=== PATIENT | female | born 1970 | race Caucasian/White ===

== ENCOUNTER 2016-08-09 16:04 | Emergency (ER) | payer BC ==
[~2016-08-09] VITALS: Ht 162.6 cm; Wt 68.0 kg
[~2016-08-09 16:04] MED LIST: CARV6.25 PO; PERC5TAB12 PO; SYNT75TA PO; ULTR50TA PO
[2016-08-09 16:06] VITALS: BP 180/86; PULSE 70; RESP 16; TEMP 97.6; O2SAT 98
--- NOTE | 2016-08-09 16:14 | PD ---
HPI Chief Complaint: Complaint Time Seen by Provider: 16:14 Travel History International Travel<30 days: No Contact w/Intl Traveler<30days: No Traveled to known affect area: No History of Present Illness HPI 45-year-old female with history of COPD, CAD, and CABG, presents to the emergency department for evaluation of urinary urgency, frequency that she has been experiencing over the last few months. She states that the last week however she has developed a low back pain and burning with urination. Denies any fever or chills. No chest tightness. No difficulty breathing. She has no other symptoms to report this time. PFSH Past Medical History Hx Anticoagulant Therapy: Yes Autoimmune Disease: Yes (alopecia) Cancer: No Cardiovascular Problems: Yes Congestive Heart Failure: Yes COPD: Yes Endocrine: No Genitourinary: No Hypertension: Yes Immune Disorder: Yes Musculoskeletal: No Neurologic: No Psychiatric: No Reproductive: No Respiratory: Yes Past Surgical History Abdominal Surgery: Yes (gastric bypass surgery) Cardiac Surgery: Yes (open-heart surgery with aortic repair and valve replacement) Gynecologic Surgery: Yes (HYSTERECTOMY, BLADDER STENT AND SLING) Hysterectomy: Yes Social History Alcohol Use: No Tobacco Use: Yes Substance Use: No Allergies-Medications (Allergen,Severity, Reaction): Coded Allergies: No Known Allergies (Unverified , 01/04/16) Reported Meds & Prescriptions Reported Meds & Active Scripts Active Keflex (Cephalexin) 500 Mg Cap 500 Mg PO Q12H 7 Days Reported Coreg (Carvedilol) 6.25 Mg Tab 6.25 Mg PO BID Synthroid (Levothyroxine Sodium) 75 Mcg Tab 75 Mcg PO DAILY Warfarin 10 Mg Tab 10 Mg PO DAILY@1600 Review of Systems Except as stated in HPI: all other systems reviewed are Neg Physical Exam Narrative GENERAL: Well-nourished, well-developed female patient, ambulatory no acute distress SKIN: Warm and dry. HEAD: Normocephalic. EYES: No scleral icterus. No injection or drainage. NECK: Supple, trachea midline. No JVD or lymphadenopathy. CARDIOVASCULAR: Regular rate and rhythm without murmurs, gallops, or rubs. RESPIRATORY: Breath sounds coarse, equal bilaterally. No accessory muscle use. Abdomen: Abdomen soft, non-tender, nondistended. Positive bowel sounds. No hepato-splenomegaly, or palpable masses. No guarding. MUSCULOSKELETAL: No cyanosis, or edema. BACK: Nontender without obvious deformity. Mild right sided CVA tenderness. Data Data Last Documented VS Vital Signs Date Time Temp Pulse Resp B/P Pulse Ox O2 Delivery O2 Flow Rate FiO2 08/09/16 18:19 97.8 76 17 130/71 98 08/09/16 16:06 Room Air Orders Complete Blood Count With Diff (08/09/16 16:22) Basic Metabolic Panel (Bmp) (08/09/16 16:22) Urinalysis - C+S If Indicated (08/09/16 16:22) Ct Abd/Pel W/O Iv Contrast (08/09/16 ) Iv Access Insert/Monitor (08/09/16 16:22) Sodium Chlorid 0.9% 500 Ml Inj (Ns 500 M (08/09/16 16:30) Urine Culture (08/09/16 16:00) Ceftriaxone Inj (Rocephin Inj) (08/09/16 17:45) Labs Laboratory Tests Test 08/09/16 08/09/16 16:00 16:41 Urine Color YELLOW Urine Turbidity HAZY Urine pH 8.0 Urine Specific [place] 1.015 Urine Protein 100 mg/dL Urine Glucose (UA) NEG mg/dL Urine Ketones NEG mg/dL Urine Occult Blood SMALL Urine Nitrite NEG Urine Bilirubin NEG Urine Urobilinogen LESS THAN 2.0 MG/DL Urine Leukocyte Esterase LARGE Urine RBC 55 /hpf Urine WBC /hpf Urine WBC Clumps OCC Urine Squamous Epithelial 1 /hpf Cells Urine Bacteria RARE /hpf Urine Mucus FEW /lpf Microscopic Urinalysis Comment CULTURE INDICATED White Blood Count 9.1 TH/MM3 Red Blood Count 4.70 MIL/MM3 Hemoglobin 13.9 GM/DL Hematocrit 40.2 % Mean Corpuscular Volume 85.5 FL Mean Corpuscular Hemoglobin 29.6 PG Mean Corpuscular Hemoglobin 34.6 % Concent Red Cell Distribution Width 15.9 % Platelet Count 264 TH/MM3 Mean Platelet Volume 7.6 FL Neutrophils (%) (Auto) 68.8 % Lymphocytes (%) (Auto) 19.6 % Monocytes (%) (Auto) 8.3 % Eosinophils (%) (Auto) 2.2 % Basophils (%) (Auto) 1.1 % Neutrophils # (Auto) 6.3 TH/MM3 Lymphocytes # (Auto) 1.8 TH/MM3 Monocytes # (Auto) 0.8 TH/MM3 Eosinophils # (Auto) 0.2 TH/MM3 Basophils # (Auto) 0.1 TH/MM3 CBC Comment DIFF FINAL Differential Comment Sodium Level 139 MEQ/L Potassium Level 4.3 MEQ/L Chloride Level 103 MEQ/L Carbon Dioxide Level 31.0 MEQ/L Anion Gap 5 MEQ/L Blood Urea Nitrogen 12 MG/DL Creatinine 0.67 MG/DL Estimat Glomerular Filtration 95 ML/MIN Rate Random Glucose 79 MG/DL Calcium Level 8.4 MG/DL [facility] Medical Decision Making Medical Screen Exam Complete: Yes Emergency Medical Condition: Yes Medical Record Reviewed: Yes Differential Diagnosis Cystitis versus vaginitis versus urethritis versus pyelonephritis versus muscle strain versus low back pain Narrative Course 45 year-old female presents to the emergency department for evaluation. Patient appears without distress. She has mild right sided CVA tenderness. Laboratory Tests Test 08/09/16 08/09/16 16:00 16:41 Urine Color YELLOW Urine Turbidity HAZY Urine pH 8.0 Urine Specific Jemison 1.015 Urine Protein 100 mg/dL Urine Glucose (UA) NEG mg/dL Urine Ketones NEG mg/dL Urine Occult Blood SMALL Urine Nitrite NEG Urine Bilirubin NEG Urine Urobilinogen LESS THAN 2.0 MG/DL Urine Leukocyte Esterase LARGE Urine RBC 55 /hpf Urine WBC /hpf Urine WBC Clumps OCC Urine Squamous Epithelial 1 /hpf Cells Urine Bacteria RARE /hpf Urine Mucus FEW /lpf Microscopic Urinalysis Comment CULTURE INDICATED White Blood Count 9.1 TH/MM3 Red Blood Count 4.70 MIL/MM3 Hemoglobin 13.9 GM/DL Hematocrit 40.2 % Mean Corpuscular Volume 85.5 FL Mean Corpuscular Hemoglobin 29.6 PG Mean Corpuscular Hemoglobin 34.6 % Concent Red Cell Distribution Width 15.9 % Platelet Count 264 TH/MM3 Mean Platelet Volume 7.6 FL Neutrophils (%) (Auto) 68.8 % Lymphocytes (%) (Auto) 19.6 % Monocytes (%) (Auto) 8.3 % Eosinophils (%) (Auto) 2.2 % Basophils (%) (Auto) 1.1 % Neutrophils # (Auto) 6.3 TH/MM3 Lymphocytes # (Auto) 1.8 TH/MM3 Monocytes # (Auto) 0.8 TH/MM3 Eosinophils # (Auto) 0.2 TH/MM3 Basophils # (Auto) 0.1 TH/MM3 CBC Comment DIFF FINAL Differential Comment Sodium Level 139 MEQ/L Potassium Level 4.3 MEQ/L Chloride Level 103 MEQ/L Carbon Dioxide Level 31.0 MEQ/L Anion Gap 5 MEQ/L Blood Urea Nitrogen 12 MG/DL Creatinine 0.67 MG/DL Estimat Glomerular Filtration 95 ML/MIN Rate Random Glucose 79 MG/DL Calcium Level 8.4 MG/DL Last Impressions Abdomen/Pelvis CT 08/09/16 0000 Signed Impressions: Service Date/Time: Tuesday, August 09, 2016 17:30 - CONCLUSION: No evidence of renal stones or hydronephrosis. No dilated loops of small or large bowel. Coleman Trinidad MD I discussed the patient and the findings of the CT scan with my attending physician. She has also assessed the patient. Patient will be discharged home to follow-up with primary care provider. She'll be provided a prescription of Keflex. She was given Rocephin here in the emergency department for her UTI. She agrees to return immediately with any acute worsening symptoms Diagnosis Primary Impression: UTI (urinary tract infection) Qualified Code: N30.01 - Acute cystitis with hematuria Referrals: Primary Care Physician Urologist Patient Instructions: General Instructions, Urinary Tract Infection in Women ( ED) Additional Instructions: Maintain adequate oral hydration Follow-up with your primary care provider Seek urology evaluation if symptoms persist Return immediately with any acute worsening of symptoms Med/Other Pt SpecificInfo: Prescription(s) given Scripts Cephalexin (Keflex)500 Mg [id number] Mg PO Q12H 7 Days Ref 0 Prov:Ericka Palmer 08/09/16 Disposition: 01 DISCHARGE HOME Condition: Stable Ericka Palmer Aug 09, 2016 16:14
[2016-08-09] MEDS ORDERED: WARF-22 PO (16:21)
[2016-08-09] MEDS ORDERED: LEVO.075 PO (16:21)
[2016-08-09] MEDS ORDERED: CARV6.25 PO (16:21)
[2016-08-09] MEDS ORDERED: SODIUM CHLORID 0.9% 500 ML INJ 500 ML IV ONE (16:30)
[2016-08-09 16:51] LABS: AUTOMATED NEUTROPHIL # 6.3 TH/MM3 (1.8-7.7); BASOPHIL # 0.1 TH/MM3 (0-0.2); BASOPHIL % 1.1 % (0.0-2.0); EOSINOPHIL # 0.2 TH/MM3 (0-0.4); EOSINOPHIL % 2.2 % (0.0-4.0); HEMATOCRIT 40.2 % (35.0-46.0); HEMO FLAGS DIFF FINAL; LYMPH % 19.6 % (9.0-44.0); LYMPHOCYTE # 1.8 TH/MM3 (1.0-4.8); MEAN CELL VOLUME 85.5 FL (80.0-100.0); MEAN CORPUSCULAR HEMOGLOBIN 29.6 PG (27.0-34.0); MEAN CORPUSCULAR HGB CONC 34.6 % (32.0-36.0); MONO % 8.3 % (0.0-8.0); NEUT % 68.8 % (16.0-70.0); PLATELET COUNT 264 TH/MM3 (150-450); RED CELL DISTRIBUTION WIDTH 15.9 % (11.6-17.2); WHITE BLOOD COUNT 9.1 TH/MM3 (4.0-11.0)
[2016-08-09 17:18] LABS: BACTERIA, URINE RARE /hpf; BLOOD, URINE SMALL (NEG); COMMENT (UR) CULTURE INDICATED; CULTURE IF INDICATED CULTURE INDICATED; GLUCOSE,URINE NEG (NEG); KETONE, URINE NEG (NEG); MUCUS URINE FEW /lpf (OCC); NITRITE,URINE NEG (NEG); SQUAMOUS EPITHELIAL CELL URINE 1 /hpf (0-5); URINE COLOR YELLOW (YELLW/STRAW)
[2016-08-09 17:20] LABS: POTASSIUM 4.3 MEQ/L (3.5-5.1)
[2016-08-09] MEDS ORDERED: cefTRIAXone INJ 1,000 MG in SODIUM CHLORIDE 0.9% INJ 100 ML IV ONE (17:45)
--- NOTE | 2016-08-09 17:58 | RADRPT ---
EXAM DATE/TIME: 08/09/2016 17:30 [place] COMPARISON: No previous studies available for comparison. INDICATIONS : Bilateral flank pain with constant urge to urinate ORAL CONTRAST: No oral contrast ingested. RADIATION DOSE: 8.39 CTDIvol (mGy) MEDICAL HISTORY : Congestive heart failure. Cardiovascular disease Chronic obstructive pulmonary disease. SURGICAL HISTORY : Hysterectomy. Gastric bypass. [employer] Interstim bladder implant device. Bladder stent with sling. ENCOUNTER: Initial ACUITY: 3 months PAIN SCALE: 2/10 LOCATION: Bilateral flank TECHNIQUE: Volumetric scanning of the abdomen and pelvis was performed. Using automated exposure control and ad justment of the mA and/or kV according to patient size, radiation dose was kept as low as reasonably achievable to obtain optimal diagnostic quality images. FINDINGS: LOWER LUNGS: The visualized lower lungs are clear. LIVER: Homogeneous density without lesion. There is no dilation of the biliary tree. No calcified gallston es. SPLEEN: Normal size without lesion. PANCREAS: Within normal limits. KIDNEYS: Normal in size and shape. There is no mass, stone, or hydronephrosis. No calcification seen along t he expected course of either ureter. ADRENAL GLANDS: Within normal limits. VASCULAR: There is no aortic aneurysm. BOWEL/MESENTERY: Surgical suture about the greater curvature of the stomach. No dilated loops of small or large bowel . ABDOMINAL WALL: Within normal limits. RETROPERITONEUM: There is no lymphadenopathy. BLADDER: Smooth margins. No calcifications within the lumen. REPRODUCTIVE: Within normal limits. INGUINAL: There is no lymphadenopathy or hernia. MUSCULOSKELETAL: Stimulation device in the left gluteal region with electrode extending to the left posterior pelvis a long the anterior margin of the piriformis muscle. CONCLUSION: No evidence of renal stones or hydronephrosis. No dilated loops of small or large bowel. Coleman Trinidad MD on August 09, 2016 at 17:54 Board Certified Radiologist. This report was verified electronically.
[2016-08-09] MEDS ORDERED: CEPH-460 PO (18:15)
[2016-08-09 18:19] VITALS: BP 130/71; TEMP 97.8
--- NOTE | 2016-08-09 18:31 | PD ---
Physical Exam Date Seen by Provider: Aug 09, 2016 Time Seen by Provider: 17:30 Narrative I, Dr. Monreal, have reviewed the advance practice practitioner's documentation and am in agreement, met with the patient face to face, made the diagnosis, and the medical decision making was done by me. *My assessment and Findings: Patient seen and evaluated with nurse practitioner , please see nurse's pressure for further details. She had with urinary symptoms, lower back discomfort. Abdomen is benign and we do not suspect an acute intra-abdominal process. Laboratory Tests Test 08/09/16 08/09/16 16:00 16:41 Urine Turbidity HAZY (CLEAR) Urine Protein 100 mg/dL (NEG-TRACE) Urine Occult Blood SMALL (NEG) Urine Leukocyte Esterase LARGE (NEG) Urine RBC 55 /hpf (0-3) Urine WBC Clumps OCC (NONE) Urine Bacteria RARE /hpf (NONE) Urine Mucus FEW /lpf (OCC) Monocytes (%) (Auto) 8.3 % (0.0-8.0) Calcium Level 8.4 MG/DL (8.5-10.1) Last 24 hours Impressions Abdomen/Pelvis CT 08/09/16 0000 Signed Impressions: Service Date/Time: Tuesday, August 09, 2016 17:30 - CONCLUSION: No evidence of renal stones or hydronephrosis. No dilated loops of small or large bowel. Coleman Trinidad MD CT of the abdomen pelvis did not reveal any signs of acute intra-abdominal processes. Lab work does show that she has significant UTI. The rest of the lab work was unremarkable for any significant sepsis. IV antibiotics were given in the ER and my plan would be to release her with further antibiotic treatment. She will need to follow-up with primary care physician and urology is she continued to have problems with UTI frequently. Return for any worsening in symptoms as needed. The plan has discussed with her and she is agreeable. Data Data Last Documented VS Vital Signs Date Time Temp Pulse Resp B/P Pulse Ox O2 Delivery O2 Flow Rate FiO2 08/09/16 18:19 97.8 76 17 130/71 98 08/09/16 16:06 Room Air Orders Complete Blood Count With Diff (08/09/16 16:22) Basic Metabolic Panel (Bmp) (08/09/16 16:22) Urinalysis - C+S If Indicated (08/09/16 16:22) Ct Abd/Pel W/O Iv Contrast (08/09/16 ) Iv Access Insert/Monitor (08/09/16 16:22) Sodium Chlorid 0.9% 500 Ml Inj (Ns 500 M (08/09/16 16:30) Urine Culture (08/09/16 16:00) Ceftriaxone Inj (Rocephin Inj) (08/09/16 17:45) Labs Laboratory Tests Test 08/09/16 08/09/16 16:00 16:41 Urine Color YELLOW Urine Turbidity HAZY Urine pH 8.0 Urine Specific [place] 1.015 Urine Protein 100 mg/dL Urine Glucose (UA) NEG mg/dL Urine Ketones NEG mg/dL Urine Occult Blood SMALL Urine Nitrite NEG Urine Bilirubin NEG Urine Urobilinogen LESS THAN 2.0 MG/DL Urine Leukocyte Esterase LARGE Urine RBC 55 /hpf Urine WBC /hpf Urine WBC Clumps OCC Urine Squamous Epithelial 1 /hpf Cells Urine Bacteria RARE /hpf Urine Mucus FEW /lpf Microscopic Urinalysis Comment CULTURE INDICATED White Blood Count 9.1 TH/MM3 Red Blood Count 4.70 MIL/MM3 Hemoglobin 13.9 GM/DL Hematocrit 40.2 % Mean Corpuscular Volume 85.5 FL Mean Corpuscular Hemoglobin 29.6 PG Mean Corpuscular Hemoglobin 34.6 % Concent Red Cell Distribution Width 15.9 % Platelet Count 264 TH/MM3 Mean Platelet Volume 7.6 FL Neutrophils (%) (Auto) 68.8 % Lymphocytes (%) (Auto) 19.6 % Monocytes (%) (Auto) 8.3 % Eosinophils (%) (Auto) 2.2 % Basophils (%) (Auto) 1.1 % Neutrophils # (Auto) 6.3 TH/MM3 Lymphocytes # (Auto) 1.8 TH/MM3 Monocytes # (Auto) 0.8 TH/MM3 Eosinophils # (Auto) 0.2 TH/MM3 Basophils # (Auto) 0.1 TH/MM3 CBC Comment DIFF FINAL Differential Comment Sodium Level 139 MEQ/L Potassium Level 4.3 MEQ/L Chloride Level 103 MEQ/L Carbon Dioxide Level 31.0 MEQ/L Anion Gap 5 MEQ/L Blood Urea Nitrogen 12 MG/DL Creatinine 0.67 MG/DL Estimat Glomerular Filtration 95 ML/MIN Rate Random Glucose 79 MG/DL Calcium Level 8.4 MG/DL [facility] Medical Record Reviewed: Yes Supervised Visit with KOLBY: Yes Diagnosis Primary Impression: UTI (urinary tract infection) Qualified Code: N30.01 - Acute cystitis with hematuria Referrals: Primary Care Physician Urologist Patient Instructions: General Instructions, Urinary Tract Infection in Women ( ED) Departure Forms: Tests/Procedures Additional Instruction: Maintain adequate oral hydration Follow-up with your primary care provider Seek urology evaluation if symptoms persist Return immediately with any acute worsening of symptoms Scripts Cephalexin (Keflex)500 Mg [id number] Mg PO Q12H 7 Days Ref 0 Prov:Ericka Palmer 08/09/16 Disposition: 01 DISCHARGE HOME Condition: Stable Jose Alberto Monreal MD Aug 09, 2016 18:31
== END 2016-08-09 18:20 | disposition home or self-care (01) ==
LOC: NEPA 16:04
DX: N30.01 Acute cystitis with hematuria (principal); B96.89 Other specified bacterial agents as the cause of diseases classified elsewhere
CPT/HCPCS: 74176; 80048; 81001; 85025; 87086; 96361; 96365; 99285; J0696; J7040

== ENCOUNTER 2016-09-19 09:21 | Emergency (ER) | payer BC ==
[~2016-09-19] VITALS: Ht 162.6 cm; Wt 68.0 kg
[~2016-09-19 09:21] MED LIST changes: +CEPH-460 PO; +LEVO.075 PO; -PERC5TAB12 PO; -SYNT75TA PO; -ULTR50TA PO; +WARF-22 PO
[2016-09-19 09:40] VITALS: BP 187/98; PULSE 78; RESP 15; TEMP 98; O2SAT 98
[2016-09-19] MEDS ORDERED: LISI-519 PO (10:14)
--- NOTE | 2016-09-19 10:23 | PD ---
HPI Chief Complaint: Skin Problem Time Seen by Provider: 09:55 Travel History International Travel<30 days: No Contact w/Intl Traveler<30days: No Traveled to known affect area: No History of Present Illness HPI 45-year-old female presents with bruising to her right forearm without trauma. She had her INR checked today at and it was actually a little low so they advised her to come to the emergency room to get more testing. This was through her nurse at Dr. zepeda's office. She denies other concurrent complaints. Quality is started with a bump and now is a bruise that is sore over her arm. PFSH Past Medical History Hx Anticoagulant Therapy: Yes (COUMADIN) Autoimmune Disease: Yes (ALOPECIA) Cardiovascular Problems: Yes ([facility] VALVE REPL 12/2015) Congestive Heart Failure: Yes COPD: Yes Diminished Hearing: No Gastrointestinal Disorders: Yes Genitourinary: No Hypertension: Yes Immune Disorder: Yes Implanted Vascular Access Dvce: Yes (MECHANICAL VALVE) Musculoskeletal: No Neurologic: No Psychiatric: No Reproductive: No Respiratory: Yes Thyroid Disease: Yes ?: Not Para: 3 : 1 Past Surgical History Abdominal Surgery: Yes (gastric bypass surgery) Cardiac Surgery: Yes (open-heart surgery with aortic repair and valve replacement) Section: Yes Gynecologic Surgery: Yes (HYSTERECTOMY, BLADDER STENT AND SLING) Hysterectomy: Yes Valve Replacement: Yes (AORTIC VALVE REPLACEMENT MECHANICAL) Other Surgery: Yes Social History Alcohol Use: Yes (OCASSIONALLY) Tobacco Use: Yes (1/2 PACK PER DAY) Substance Use: Yes (MARIHUANA) Allergies-Medications (Allergen,Severity, Reaction): Coded Allergies: No Known Allergies (Unverified , 09/19/16) Reported Meds & Prescriptions Reported Meds & Active Scripts Active Reported Lisinopril 5 Mg Tab 5 Mg PO DAILY Coreg (Carvedilol) 6.25 Mg Tab 6.25 Mg PO BID Synthroid (Levothyroxine Sodium) 75 Mcg Tab 75 Mcg PO DAILY Warfarin 10 Mg Tab 10 Mg PO DAILY@1600 Review of Systems Except as stated in HPI: all other systems reviewed are Neg Physical Exam Narrative GENERAL: Well-nourished, well-developed patient. SKIN: Warm and dry. Appears to be older ecchymosis over her right arm with small area of hematoma just below right elbow without any joint pain or active bleeding HEAD: Normocephalic and atraumatic. EYES: No injection or drainage. ENT: No nasal drainage noted. NECK: Supple, trachea midline. CARDIOVASCULAR: Regular rate and rhythm RESPIRATORY: No increased effort. No accessory muscle use. GASTROINTESTINAL: Abdomen soft, non-tender, nondistended. EXTREMITIES: No edema.Pain with palpation of right forearm over bruise, no pain with other joints , neurovascularly intact, no lacerations over, compartments soft. NEUROLOGICAL: Awake and alert. Motor and sensory grossly within normal limits. Normal speech. Data Data Last Documented VS Vital Signs Date Time Temp Pulse Resp B/P Pulse Ox O2 Delivery O2 Flow Rate FiO2 09/19/16 09:40 98.0 78 15 187/98 98 Orders Complete Blood Count With Diff (09/19/16 09:56) Basic Metabolic Panel (Bmp) (09/19/16 09:56) Act Partial Throm Time (Ptt) (09/19/16 09:56) Prothrombin Time / Inr (Pt) (09/19/16 09:56) Iv Access Insert/Monitor (09/19/16 09:56) Labs Laboratory Tests Test 09/19/16 10:10 White Blood Count 9.3 TH/MM3 Red Blood Count 4.90 MIL/MM3 Hemoglobin 14.4 GM/DL Hematocrit 42.7 % Mean Corpuscular Volume 87.2 FL Mean Corpuscular Hemoglobin 29.4 PG Mean Corpuscular Hemoglobin 33.7 % Concent Red Cell Distribution Width 14.6 % Platelet Count 252 TH/MM3 Mean Platelet Volume 8.0 FL Neutrophils (%) (Auto) 69.5 % Lymphocytes (%) (Auto) 21.3 % Monocytes (%) (Auto) 6.8 % Eosinophils (%) (Auto) 2.1 % Basophils (%) (Auto) 0.3 % Neutrophils # (Auto) 6.5 TH/MM3 Lymphocytes # (Auto) 2.0 TH/MM3 Monocytes # (Auto) 0.6 TH/MM3 Eosinophils # (Auto) 0.2 TH/MM3 Basophils # (Auto) 0.0 TH/MM3 CBC Comment DIFF FINAL Differential Comment Prothrombin Time 25.3 SEC Prothromb Time International 2.2 RATIO Ratio Activated Partial 35.3 SEC Thromboplast Time Sodium Level 143 MEQ/L Potassium Level 3.7 MEQ/L Chloride Level 107 MEQ/L Carbon Dioxide Level 26.6 MEQ/L Anion Gap 9 MEQ/L Blood Urea Nitrogen 12 MG/DL Creatinine 0.66 MG/DL Estimat Glomerular Filtration 96 ML/MIN Rate Random Glucose 84 MG/DL Calcium Level 8.6 MG/DL [facility] Medical Decision Making Medical Screen Exam Complete: Yes Emergency Medical Condition: Yes Medical Record Reviewed: Yes (past history confirmed) Interpretation(s) CBC & BMP Diagram 09/19/16 10:10 inr 2.2 Differential Diagnosis Anemia, supratherapeutic INR, thrombocytopenia Narrative Course Will check blood work and reevaluate INR level is 2.2 which is actually a little bit low for patient with mechanical valve. She has no other signs of bleeding and her hemoglobin is stable. She agrees to discharge with close follow-up with her doctor for further adjustment, Patient denies any new complaints, all questions answered. Patient knows that follow up is incumbent on them and to return to the emergency room immediately if new or worsening symptoms develop. Patient given strict return precautions, vitals reviewed and are normal, agrees to further workup as an outpatient. Diagnosis Primary Impression: right forearm ecchymosis Patient Instructions: General Instructions Additional Instructions: follow with primary thursday, return as needed Med/Other Pt SpecificInfo: No Change to Meds Disposition: 01 DISCHARGE HOME Condition: Stable Viviane Plascencia MD Sep 19, 2016 10:23 Viviane Plascencia MD Sep 19, 2016 10:23
[2016-09-19 10:27] LABS: AUTOMATED NEUTROPHIL # 6.5 TH/MM3 (1.8-7.7); BASOPHIL % 0.3 % (0.0-2.0); EOSINOPHIL # 0.2 TH/MM3 (0-0.4); EOSINOPHIL % 2.1 % (0.0-4.0); HEMATOCRIT 42.7 % (35.0-46.0); HEMO FLAGS DIFF FINAL; LYMPH % 21.3 % (9.0-44.0); MEAN CELL VOLUME 87.2 FL (80.0-100.0); MEAN CORPUSCULAR HEMOGLOBIN 29.4 PG (27.0-34.0); MEAN CORPUSCULAR HGB CONC 33.7 % (32.0-36.0); MONO % 6.8 % (0.0-8.0); NEUT % 69.5 % (16.0-70.0); PLATELET COUNT 252 TH/MM3 (150-450); RED CELL DISTRIBUTION WIDTH 14.6 % (11.6-17.2); WHITE BLOOD COUNT 9.3 TH/MM3 (4.0-11.0)
[2016-09-19 10:34] LABS: APTT (PATIENT) 35.3 SEC (24.3-30.1); INTERNATIONAL NORMALIZED RATIO 2.2 RATIO; PROTHROMBIN TIME - PATIENT 25.3 SEC (9.8-11.6)
[2016-09-19 10:40] LABS: BICARBONATE 26.6 MEQ/L (21.0-32.0); POTASSIUM 3.7 MEQ/L (3.5-5.1)
== END 2016-09-19 12:02 | disposition home or self-care (01) ==
LOC: NEPC 09:21
DX: R23.3 Spontaneous ecchymoses (principal); I50.9 Heart failure, unspecified; J44.9 Chronic obstructive pulmonary disease, unspecified; I10 Essential (primary) hypertension; Z95.2 Presence of prosthetic heart valve; Z79.01 Long term (current) use of anticoagulants; F17.210 Nicotine dependence, cigarettes, uncomplicated
CPT/HCPCS: 80048; 85025; 85610; 85730; 99284

== ENCOUNTER 2016-12-27 21:01 | Emergency (ER) | payer BC ==
[~2016-12-27] VITALS: Ht 162.6 cm; Wt 72.0 kg
[~2016-12-27 21:01] MED LIST changes: -CEPH-460 PO; +LISI-519 PO
[2016-12-27 21:04] VITALS: BP 205/91; PULSE 61; RESP 16; TEMP 98.2; O2SAT 98
--- NOTE | 2016-12-27 21:07 | PD ---
Physical Exam Date Seen by Provider: Dec 27, 2016 Time Seen by Provider: 21:05 Data Data Last Documented VS Vital Signs Date Time Temp Pulse Resp B/P Pulse Ox O2 Delivery O2 Flow Rate FiO2 12/27/16 21:04 98.2 61 16 205/91 98 Room Air [facility] Supervised Visit with KOLBY: No Narrative Course 46 YO F with PMH of HTN, COPD, CAD, gastric sleeve with complaint of LEFT rib pain since last night. The patient states that she was leaning against her porch railing when the pain onset. Denies falling. Endorses SOB, worse than her normal symptoms. Vitals reviewed. Patient seen in triage. Awaiting bed placement. Nikole Mares Dec 27, 2016 21:07
--- NOTE | 2016-12-27 21:14 | PD ---
HPI Chief Complaint: Chest Pain Time Seen by Provider: 21:14 Travel History International Travel<30 days: No Contact w/Intl Traveler<30days: No Traveled to known affect area: No History of Present Illness HPI 46-year-old female with history of COPD, CAD, aortic valve repair, on Coumadin, presents to the emergency department for evaluation of right rib pain. Patient states last evening she was leaning over her Bannister of her patio when she felt a sharp pain. She states she went to bed but it persisted and has only worsened throughout the day. States it is exacerbated with movement or palpation. States it is difficult to take a deep breath. She is chronically short of breath but reports the pain is causing her shortness of breath to be worse because she is unable to raise without significant pain. Denies any hemoptysis. No chest pain other than the isolated rib pain. No nausea or vomiting. Her abdominal pain. No fever or chills. No other symptoms to report. PFSH Past Medical History Hx Anticoagulant Therapy: Yes (COUMADIN) Autoimmune Disease: Yes (ALOPECIA) Cardiovascular Problems: Yes ([facility] VALVE REPL 12/2015) Congestive Heart Failure: Yes COPD: Yes Diminished Hearing: No Gastrointestinal Disorders: Yes Genitourinary: No Hypertension: Yes Immune Disorder: Yes Implanted Vascular Access Dvce: Yes (MECHANICAL VALVE) Musculoskeletal: No Neurologic: No Psychiatric: No Reproductive: No Respiratory: Yes Thyroid Disease: Yes Para: 3 : 1 Past Surgical History Abdominal Surgery: Yes (gastric bypass surgery) Cardiac Surgery: Yes (open-heart surgery with aortic repair and valve replacement) Section: Yes Gynecologic Surgery: Yes (HYSTERECTOMY, BLADDER STENT AND SLING) Hysterectomy: Yes Valve Replacement: Yes (AORTIC VALVE REPLACEMENT MECHANICAL) Other Surgery: Yes Social History Alcohol Use: Yes (OCASSIONALLY) Tobacco Use: Yes (1/2 PACK PER DAY) Substance Use: Yes (MARIANA) Allergies-Medications (Allergen,Severity, Reaction): Coded Allergies: No Known Allergies (Unverified , 12/27/16) Reported Meds & Prescriptions Reported Meds & Active Scripts Active Reported Aspirin 81 Mg Chew 81 Mg CHEW DAILY Lisinopril 5 Mg Tab 5 Mg PO DAILY Coreg (Carvedilol) 6.25 Mg Tab 6.25 Mg PO BID Synthroid (Levothyroxine Sodium) 75 Mcg Tab 75 Mcg PO DAILY Warfarin 10 Mg Tab 10 Mg PO DAILY@1600 Review of Systems Except as stated in HPI: all other systems reviewed are Neg Physical Exam Narrative GENERAL: Well-nourished female patient, in no acute distress SKIN: Focused skin assessment warm/dry. HEAD: Atraumatic. Normocephalic. EYES: Pupils equal and round. No scleral icterus. No injection or drainage. ENT: No nasal bleeding or discharge. Mucous membranes pink and moist. NECK: Trachea midline. No JVD. CARDIOVASCULAR: Regular rate and rhythm. RESPIRATORY: No accessory muscle use. Diminished. Tenderness elicited palpation over the right anterior ribs, under the breast. No crepitus. Even respirations. Breath sounds equal bilaterally. GASTROINTESTINAL: Abdomen soft, non-tender, nondistended. Hepatic and splenic margins not palpable. MUSCULOSKELETAL: No obvious deformities. No clubbing. No cyanosis. No edema. NEUROLOGICAL: Awake and alert. No obvious cranial nerve deficits. Motor grossly within normal limits. Normal speech. PSYCHIATRIC: Appropriate mood and affect; insight and judgment normal. Data Data Last Documented VS Vital Signs Date Time Temp Pulse Resp B/P Pulse Ox O2 Delivery O2 Flow Rate FiO2 12/27/16 22:02 189/95 12/27/16 21:04 98.2 61 16 98 Room Air Orders Electrocardiogram (12/27/16 ) Ketorolac Inj (Toradol Inj) (12/27/16 21:30) Sodium Chlor 0.9% 1000 Ml Inj (Ns 1000 M (12/27/16 21:30) Chest, Single Ap (12/27/16 ) MDM Medical Decision Making Medical Screen Exam Complete: Yes Emergency Medical Condition: Yes Medical Record Reviewed: Yes Differential Diagnosis Rib contusion versus fracture versus pleuritic pain versus costochondritis Narrative Course 46-year-old female presents to emergency department for evaluation right anterior rib pain. Patient states that she injured this last evening while leaning over her Bannister. Pain is exacerbated with palpation or deep inspiration. Breath sounds are even. Patient is quite hypertensive here in the emergency department. She is treated for pain. X-ray imaging is complete and shows no acute cardiopulmonary disease. Blood pressure has decreased since pain is treated. Patient will be discharged home. She agrees to return immediately with any acute worsening of symptoms. Diagnosis Primary Impression: Rib pain on right side Referrals: Primary Care Physician Patient Instructions: General Instructions, Rib Contusion (ED) Additional Instructions: It is important that you continue to take deep breaths Follow-up with a primary care provider Return immediately with any acute worsening of symptoms Med/Other Pt SpecificInfo: Prescription(s) given Scripts Prednisone 50 Mg Tab50 Mg PO DAILY 5 Days Ref 0 Prov:Ericka Palmer 12/27/16 Disposition: 01 DISCHARGE HOME Condition: Stable Ericka Palmer Dec 27, 2016 21:14
[2016-12-27] MEDS ORDERED: ASPI81CH CHEW (21:16)
[2016-12-27] MEDS ORDERED: KETOROLAC TROMETHAMINE 30 MG/ML (IVP) VIAL IV PUSH ONE (21:30)
[2016-12-27] MEDS ORDERED: SODIUM CHLOR 0.9% 1000 ML INJ 1,000 ML IV ONE (21:30)
--- NOTE | 2016-12-27 21:53 | RADRPT ---
EXAM DATE/TIME: 12/27/2016 21:25 [facility] COMPARISON: No previous studies available for comparison. INDICATIONS : Right side chest pain. MEDICAL HISTORY : Hypertension. SURGICAL HISTORY : CABG. ENCOUNTER: Initial ACUITY: 2 days PAIN SCORE: 9/10 LOCATION: Right lower chest FINDINGS: A single view of the chest demonstrates the lungs to be symmetrically aerated without evidence of mas s, infiltrate or effusion. The cardiomediastinal contours are unremarkable. Osseous structures are intact. Median sternotomy changes are again noted. CONCLUSION: No evidence of acute cardiopulmonary disease. Tai Hooper MD on December 27, 2016 at 21:51 Board Certified Radiologist. This report was verified electronically.
[2016-12-27 22:02] VITALS: BP 189/95
[2016-12-27] MEDS ORDERED: PRED50 PO (22:06)
[2016-12-27] MEDS ORDERED: HYDR-3533 PO (22:07)
--- NOTE | 2016-12-28 12:16 | EKG ---
Date Performed: 12/27/2016 Time Performed: 21:21:16 PTAGE: 46 years EKG: Sinus rhythm MODERATE VOLTAGE CRITERIA FOR LVH, CONSIDER NORMAL VARIANT NONSPECIFIC T-WAVE ABNORMALITY BORDERLINE ECG PREVIOUS TRACING : 01/04/2016 12.17 Compared to prior tracing no significant change DOCTOR: Vega Negrete Interpretating Date/Time 12/28/2016 12:13:00
== END 2016-12-27 22:24 | disposition home or self-care (01) ==
LOC: NEPC 21:01
DX: R07.81 Pleurodynia (principal); Z98.84 Bariatric surgery status; Z95.2 Presence of prosthetic heart valve; I50.9 Heart failure, unspecified; J44.9 Chronic obstructive pulmonary disease, unspecified; I10 Essential (primary) hypertension; Z79.01 Long term (current) use of anticoagulants; F17.210 Nicotine dependence, cigarettes, uncomplicated; X50.9XXA Other and unspecified overexertion or strenuous movements or postures, initial encounter; Y93.89 Activity, other specified; Y92.008 Other place in unspecified non-institutional (private) residence as the place of occurrence of the external cause
CPT/HCPCS: 71010; 93005; 96374; 99284; J1885; J7030

== ENCOUNTER 2017-01-31 21:16 | Emergency (ER) | payer BC ==
[~2017-01-31] VITALS: Ht 165.1 cm; Wt 72.0 kg
[~2017-01-31 21:16] MED LIST changes: +ASPI81CH CHEW; +HYDR-3533 PO; +PRED50 PO
[2017-01-31 21:20] VITALS: BP 187/81; PULSE 54; RESP 16; TEMP 98.3; O2SAT 99
[2017-01-31] MEDS ORDERED: WARF-22 PO (22:42)
[2017-01-31] MEDS ORDERED: FLUT1INH INH (22:43)
--- NOTE | 2017-01-31 22:55 | PD ---
HPI Chief Complaint: Respiratory Symptoms Time Seen by Provider: 22:54 Travel History International Travel<30 days: No Contact w/Intl Traveler<30days: No Traveled to known affect area: No History of Present Illness HPI 46-year-old female presents to the emergency department by private transportation for complaint of chest pain that is worsened by movement palpation and deep inspiratory effort. Patient states that she has a mechanical valve and is prescribed warfarin. 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 Patient is been doing well to the past one week she's noticed that she has had increasing discomfort affecting the left chest wall under the left breast. Patient rates discomfort as moderate to severe. Patient denies any injury. Patient reports she has been very active. Patient states symptoms remind her somewhat of previous episode of pleurisy. Patient is been taking her prescription medications as directed. Patient's had no productive cough no hemoptysis no referred neck jaw back shoulder arm pain. Patient denies any abdominal pain. There is been no nausea or vomiting. Patient's had no flank pain. Patient is not noticed increased bruising. Patient denies other concerns or complaints. Patient rates her discomfort 6-7/10 in intensity. [facility] Past Medical History Narrative Medical warfarin therapy, alopecia, AVR, chf, copd, htn, thyroid disease; gastric bypass hysterectomy; alcohol use tobacco use marijuana use; nurse notes reviewed Hx Anticoagulant Therapy: Yes (COUMADIN) Autoimmune Disease: Yes (ALOPECIA) Cardiovascular Problems: Yes ([facility] VALVE REPL 12/2015) Congestive Heart Failure: Yes COPD: Yes Diminished Hearing: No Gastrointestinal Disorders: Yes Genitourinary: No Hypertension: Yes Immune Disorder: Yes Implanted Vascular Access Dvce: Yes (MECHANICAL VALVE) Musculoskeletal: No Neurologic: No Psychiatric: No Reproductive: No Respiratory: Yes Thyroid Disease: Yes Influenza Vaccination: No ?: Not Menopausal: Yes Para: 3 : 1 Past Surgical History Abdominal Surgery: Yes (gastric bypass surgery) Cardiac Surgery: Yes (open-heart surgery with aortic repair and valve replacement) Section: Yes Gynecologic Surgery: Yes (HYSTERECTOMY, BLADDER STENT AND SLING) Hysterectomy: Yes Valve Replacement: Yes (AORTIC VALVE REPLACEMENT MECHANICAL) Other Surgery: Yes Social History Alcohol Use: Yes (OCASSIONALLY) Tobacco Use: Yes (1/2 PACK PER DAY) Substance Use: Yes (MARIjUANA) Allergies-Medications (Allergen,Severity, Reaction): Coded Allergies: No Known Allergies (Unverified , 01/31/17) Reported Meds & Prescriptions Reported Meds & Active Scripts Active Prednisone 50 Mg Tab 50 Mg PO DAILY 5 Days Reported Breo Ellipta Inh (Fluticasone/Vilanterol) 100-25 Mcg/Act Inh 1 Puff INH DAILY Use daily at the same time. Warfarin 10 Mg Tab 15 Mg PO THURSDAY Aspirin 81 Mg Chew 81 Mg CHEW DAILY Lisinopril 5 Mg Tab 5 Mg PO DAILY Coreg (Carvedilol) 6.25 Mg Tab 6.25 Mg PO BID Synthroid (Levothyroxine Sodium) 75 Mcg Tab 75 Mcg PO DAILY Warfarin 10 Mg Tab 10 Mg PO DA Review of Systems Except as stated in HPI: all other systems reviewed are Neg Physical Exam Narrative GENERAL: Well-developed, she will no acute distress no respiratory distress SKIN: Warm and dry. HEAD: Normocephalic. EYES: No scleral icterus. No injection or drainage. NECK: Supple, trachea midline. No JVD or lymphadenopathy. CARDIOVASCULAR: Regular rate and rhythm without murmurs, gallops, or rubs. RESPIRATORY: Breath sounds equal bilaterally. No accessory muscle use. GASTROINTESTINAL: Abdomen soft, non-tender, nondistended. MUSCULOSKELETAL: No cyanosis, or edema. BACK: Nontender without obvious deformity. No CVA tenderness. Data Data Last Documented VS Vital Signs Date Time Temp Pulse Resp B/P Pulse Ox O2 Delivery O2 Flow Rate FiO2 02/01/17 00:00 42 14 154/66 99 Nasal Cannula 2 01/31/17 21:20 98.3 Orders Electrocardiogram (01/31/17 22:54) Ckmb (Isoenzyme) Profile (01/31/17 22:54) Complete Blood Count With Diff (01/31/17 22:54) Comprehensive Metabolic Panel (01/31/17 22:54) Magnesium (Mg) (01/31/17 22:54) Prothrombin Time / Inr (Pt) (01/31/17 22:54) Act Partial Throm Time (Ptt) (01/31/17 22:54) Troponin I (01/31/17 22:54) Lipase (01/31/17 22:54) Chest, Single Ap (01/31/17 22:54) Ecg Monitoring (01/31/17 22:54) Bilateral Bp Monitoring (01/31/17 22:54) Iv Access Insert/Monitor (01/31/17 22:54) Oximetry (01/31/17 22:54) Oxygen Administration (01/31/17 22:54) Sodium Chloride 0.9% Flush (Ns Flush) (01/31/17 23:00) Labs Laboratory Tests Test 01/31/17 22:45 White Blood Count 8.8 TH/MM3 Red Blood Count 4.67 MIL/MM3 Hemoglobin 14.2 GM/DL Hematocrit 42.1 % Mean Corpuscular Volume 90.1 FL Mean Corpuscular Hemoglobin 30.3 PG Mean Corpuscular Hemoglobin 33.6 % Concent Red Cell Distribution Width 13.3 % Platelet Count 240 TH/MM3 Mean Platelet Volume 8.0 FL Neutrophils (%) (Auto) 55.9 % Lymphocytes (%) (Auto) 30.3 % Monocytes (%) (Auto) 9.2 % Eosinophils (%) (Auto) 3.5 % Basophils (%) (Auto) 1.1 % Neutrophils # (Auto) 4.9 TH/MM3 Lymphocytes # (Auto) 2.7 TH/MM3 Monocytes # (Auto) 0.8 TH/MM3 Eosinophils # (Auto) 0.3 TH/MM3 Basophils # (Auto) 0.1 TH/MM3 CBC Comment DIFF FINAL Differential Comment Prothrombin Time 58.0 SEC Prothromb Time International 4.9 RATIO Ratio Activated Partial 47.0 SEC Thromboplast Time Sodium Level 141 MEQ/L Potassium Level 3.5 MEQ/L Chloride Level 106 MEQ/L Carbon Dioxide Level 26.4 MEQ/L Anion Gap 9 MEQ/L Blood Urea Nitrogen 14 MG/DL Creatinine 0.59 MG/DL Estimat Glomerular Filtration 109 ML/MIN Rate Random Glucose 97 MG/DL Calcium Level 8.1 MG/DL Magnesium Level 2.0 MG/DL Total Bilirubin 0.3 MG/DL Aspartate Amino Transf 17 U/L (AST/SGOT) Alanine Aminotransferase 20 U/L (ALT/SGPT) Alkaline Phosphatase 75 U/L Total Creatine Kinase 47 U/L Troponin I LESS THAN 0.02 NG/ML Total Protein 6.9 GM/DL Albumin 3.5 GM/DL Lipase 220 U/L [facility] Medical Decision Making Medical Screen Exam Complete: Yes Emergency Medical Condition: Yes Medical Record Reviewed: Yes Interpretation(s) EKG: Sinus bradycardia rate [address] elevation or injury pattern change noted Last Impressions Chest X-Ray 01/31/172253 Signed Impressions: Service Date/Time: Tuesday, January 31, 2017 23:02 - CONCLUSION: No acute disease. Tai Hancock MD Last Impressions Chest X-Ray 01/31/172253 Signed Impressions: Service Date/Time: Tuesday, January 31, 2017 23:02 - CONCLUSION: No acute disease. Tai Hancock MD Vital Signs CBC & BMP Diagram 01/31/17 22:45 ck/troponin I: wnl INR: 4.9 Differential Diagnosis Pleurisy costochondritis musculoskeletal pain atypical chest pain ACS TX coagulopathy anemia PE Narrative Course Patient placed on monitoring tech IV access obtained specimens collected and sent for resulting EKG shows no acute injury pattern change LVH by voltage criteria and bradycardia rate of 50 (Thursday grossly within normal limits and chest x-ray reveals no effusion or failure Patient informed of imaging results states she feels improved and is desirous of being discharged to home patient presents with musculoskeletal reproducible pain is stable for outpatient management and follow-up with her primary care provider patient is noted to have mildly suprapubic INR 4.9 is told to hold her dose of warfarin. Diagnosis Primary Impression: Left-sided chest wall pain Additional Impression: Supratherapeutic INR Referrals: Primary Care Physician call for appointment Patient Instructions: General Instructions Additional Instructions: Increase fluid hydration Hold dose of warfarin/Coumadin Follow-up with your primary care provider/specialist Return to the emergency department for a concerns or change in condition take acetaminophen/Tylenol as often as every 4 hours as needed for fever 100.4 F or greater or for minor pain Med/Other Pt SpecificInfo: Prescription(s) given Disposition: 01 DISCHARGE HOME Condition: Stable Katie Renner MD Jan 31, 2017 22:55
[2017-01-31] MEDS ORDERED: SODIUM CHLORIDE 0.9% FLUSH 10 ML FLUSH IVF PRN (23:00)
[2017-01-31 23:03] VITALS: RESP 22; O2SAT 96
[2017-01-31 23:29] LABS: AUTOMATED NEUTROPHIL # 4.9 TH/MM3 (1.8-7.7); BASOPHIL # 0.1 TH/MM3 (0-0.2); BASOPHIL % 1.1 % (0.0-2.0); EOSINOPHIL # 0.3 TH/MM3 (0-0.4); EOSINOPHIL % 3.5 % (0.0-4.0); HEMATOCRIT 42.1 % (35.0-46.0); HEMO FLAGS DIFF FINAL; LYMPH % 30.3 % (9.0-44.0); LYMPHOCYTE # 2.7 TH/MM3 (1.0-4.8); MEAN CELL VOLUME 90.1 FL (80.0-100.0); MEAN CORPUSCULAR HEMOGLOBIN 30.3 PG (27.0-34.0); MEAN CORPUSCULAR HGB CONC 33.6 % (32.0-36.0); MONO % 9.2 % (0.0-8.0); NEUT % 55.9 % (16.0-70.0); PLATELET COUNT 240 TH/MM3 (150-450); RED BLOOD COUNT 4.67 MIL/MM3 (4.00-5.30); RED CELL DISTRIBUTION WIDTH 13.3 % (11.6-17.2); WHITE BLOOD COUNT 8.8 TH/MM3 (4.0-11.0)
--- NOTE | 2017-01-31 23:31 | RADRPT ---
EXAM DATE/TIME: 01/31/2017 23:02 [facility] COMPARISON: CHEST SINGLE AP, December 27, 2016, 21:25. INDICATIONS : Shortness of breath tonight. MEDICAL HISTORY : Chronic obstructive pulmonary disease. Congestive heart failure. Hypertension. Alopecia SURGICAL HISTORY : Hysterectomy. Aortic valve replacement ENCOUNTER: Initial ACUITY: 1 day PAIN SCORE: 7/10 LOCATION: Bilateral chest FINDINGS: A single view of the chest demonstrates the lungs to be symmetrically aerated without evidence of mas s, infiltrate or effusion. The cardiomediastinal contours are unremarkable. Sternotomy wires present . CONCLUSION: No acute disease. Tai Hancock MD on January 31, 2017 at 23:29 Board Certified Radiologist. This report was verified electronically.
[2017-01-31 23:46] LABS: ALT (GPT) 20 U/L (10-53); ANION GAP 9 MEQ/L (5-15); AST (GOT) 17 U/L (15-37); BICARBONATE 26.4 MEQ/L (21.0-32.0); BLOOD UREA NITROGEN 14 MG/DL (7-18); CHLORIDE 106 MEQ/L (98-107); GLOMERULAR FILTRATION RATE 109 ML/MIN (>89); POTASSIUM 3.5 MEQ/L (3.5-5.1); SODIUM (NA) 141 MEQ/L (136-145)
[2017-01-31 23:48] LABS: INTERNATIONAL NORMALIZED RATIO 4.9 RATIO
[2017-01-31 23:50] LABS: ALKALINE PHOSPHATASE 75 U/L (45-117); TOTAL BILIRUBIN ADULT 0.3 MG/DL (0.2-1.0)
[2017-01-31 23:54] LABS: CREATINE KINASE 47 U/L (26-192)
[2017-02-01] VITALS: BP 154/66; PULSE 42; RESP 14; O2SAT 99
--- NOTE | 2017-02-01 18:26 | EKG ---
Date Performed: 01/31/2017 Time Performed: 22:42:04 PTAGE: 46 years EKG: SINUS BRADYCARDIA LEFT VENTRICULAR HYPERTROPHY AND ST-T CHANGE ABNORMAL ECG INTERPRETATION BASED ON A DEFAULT AGE OF 39 YEARS PREVIOUS TRACING : 12/27/2016 21.21 Compared to prior tracing no significant change DOCTOR: Joaquin Denney Interpretating Date/Time 02/01/2017 18:24:03
== END 2017-02-01 00:58 | disposition home or self-care (01) ==
LOC: NEPC 21:16
DX: R07.89 Other chest pain (principal); R00.1 Bradycardia, unspecified; I50.9 Heart failure, unspecified; F17.200 Nicotine dependence, unspecified, uncomplicated; R79.1 Abnormal coagulation profile; Z79.01 Long term (current) use of anticoagulants
CPT/HCPCS: 71010; 80053; 82550; 83690; 83735; 84484; 85025; 85610; 85730; 93005; 99285

== ENCOUNTER 2017-04-05 12:30 | Emergency (ER) | payer BC ==
[~2017-04-05] VITALS: Ht 160 cm; Wt 74.6 kg
[~2017-04-05 12:30] MED LIST changes: +FLUT1INH INH; -HYDR-3533 PO
[2017-04-05 12:36] VITALS: BP 159/93; PULSE 74; RESP 16; TEMP 98.4; O2SAT 98
[2017-04-05 13:27] LABS: BLOOD, URINE MOD (NEG); GLUCOSE,URINE NEG (NEG); KETONE, URINE NEG (NEG); NITRITE,URINE NEG (NEG)
--- NOTE | 2017-04-05 13:36 | PD ---
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 Denies frequency pain or hematuria. Reports a history of frequent urinary tract infections presenting similarly. Reports vaginal itching. Denies any vaginal discharge. Denies any nausea vomiting diarrhea or fever. PFSH Past Medical History Hx Anticoagulant Therapy: Yes (COUMADIN) Autoimmune Disease: Yes (ALOPECIA) Cardiovascular Problems: Yes ([facility] VALVE REPL 12/2015) Congestive Heart Failure: Yes COPD: Yes Diminished Hearing: No Gastrointestinal Disorders: Yes Genitourinary: No Hypertension: Yes Immune Disorder: Yes Implanted Vascular Access Dvce: Yes (MECHANICAL VALVE) Musculoskeletal: No Neurologic: No Psychiatric: No Reproductive: No Respiratory: Yes Thyroid Disease: Yes Tetanus Vaccination: > 5 Years Influenza Vaccination: No ?: Not Menopausal: Yes Para: 3 : 1 Past Surgical History Abdominal Surgery: Yes (gastric bypass surgery) Cardiac Surgery: Yes (open-heart surgery with aortic repair and valve replacement) Section: Yes Gynecologic Surgery: Yes (HYSTERECTOMY, BLADDER STENT AND SLING) Hysterectomy: Yes Valve Replacement: Yes (AORTIC VALVE REPLACEMENT MECHANICAL) Other Surgery: Yes Social History Alcohol Use: Yes (OCASSIONALLY) Tobacco Use: Yes (1 PACK PER DAY) Substance Use: Yes (MARIjUANA) Allergies-Medications (Allergen,Severity, Reaction): Coded Allergies: No Known Allergies (Unverified , 04/05/17) Reported Meds & Prescriptions Reported Meds & Active Scripts Active Reported Warfarin 10 Mg Tab 15 Mg PO THURSDAY Aspirin 81 Mg Chew 81 Mg CHEW DAILY Lisinopril 5 Mg Tab 5 Mg PO DAILY Coreg (Carvedilol) 6.25 Mg Tab 6.25 Mg PO BID Synthroid (Levothyroxine Sodium) 75 Mcg Tab 75 Mcg PO DAILY Warfarin 10 Mg Tab 10 Mg PO DA Review of Systems General / Constitutional: No: Fever Eyes: No: Visual changes HENT: No: Headaches Cardiovascular: No: Chest Pain or Discomfort Respiratory: No: Shortness of Breath Gastrointestinal: No: Abdominal Pain Genitourinary: No: Dysuria Musculoskeletal: No: Pain Skin: No Rash Neurologic: No: Weakness Psychiatric: No: Depression Endocrine: No: Polydipsia Hematologic/Lymphatic: No: Easy Bruising Physical Exam Narrative GENERAL: Well-nourished, well-developed patient. SKIN: Focused skin assessment warm/dry. HEAD: Normocephalic. EYES: No scleral icterus. No injection or drainage. NECK: Supple, trachea midline. No JVD or lymphadenopathy. CARDIOVASCULAR: Regular rate and rhythm without murmurs, gallops, or rubs. RESPIRATORY: Breath sounds equal bilaterally. No accessory muscle use. GASTROINTESTINAL: Abdomen soft, non-tender, nondistended. MUSCULOSKELETAL: No cyanosis, or edema. BACK: Nontender without obvious deformity. No CVA tenderness. Pelvic exam reveals minor discharge characteristic of a yeast infection Data Data Last Documented VS Vital Signs Date Time Temp Pulse Resp B/P (MAP) Pulse Ox O2 Delivery O2 Flow Rate FiO2 04/05/17 12:36 98.4 74 16 159/93 (115) 98 Orders Orders Urinalysis - C+S If Indicated (04/05/17 12:36) Ed Urine Pregnancytest Poc (04/05/17 12:36) Urine Culture (04/05/17 13:00) Labs Laboratory Tests Test 04/05/17 13:00 Urine Collection Type CLEAN CATCH Urine Color YELLOW Urine Turbidity MOD Urine pH 6.0 Urine Specific [place] 1.017 Urine Protein NEG mg/dL Urine Glucose (UA) NEG mg/dL Urine Ketones NEG mg/dL Urine Occult Blood MOD Urine Nitrite NEG Urine Bilirubin NEG Urine Leukocyte Esterase MOD Urine RBC 4-9 /hpf Urine WBC 9-14 /hpf Urine Squamous Epithelial Cells 6-8 /hpf Urine Amorphous Sediment MOD Urine Bacteria FEW /hpf Microscopic Urinalysis Comment CULTURE INDICATED Urine Collection Time 1300 [facility] Medical Decision Making Medical Screen Exam Complete: Yes Emergency Medical Condition: Yes Differential Diagnosis UTI, vaginitis, yeast infection Narrative Course assessment and plan discussed with patient at bedside. Diagnosis Primary Impression: Vaginitis Qualified Codes: N76.0 - Acute vaginitis Additional Impression: Dysuria Patient Instructions: General Instructions Additional Instructions: Encourage fluids and cranberry supplement. Follow-up with PCP. Return to emergency room with any onset of new symptoms. Med/Other Pt SpecificInfo: Prescription(s) given Scripts Ciprofloxacin (Cipro) 500 Mg Tab 500 MG PO BID for Infection for 5 Days, #10 TAB 0 Refills Prov: Dwayne Armenta MD 04/05/17 Fluconazole (Diflucan) 150 Mg Tab 150 MG PO ONCE for Infection, #1 TAB 0 Refills Prov: Dwayne Armenta MD 04/05/17 Disposition: 01 DISCHARGE HOME Condition: Good Dwayne Armenta MD Apr 05, 2017 13:36
[2017-04-05 13:38] LABS: METHOD OF COLLECTION CLEAN CATCH; URINE COLOR YELLOW (YELLW/STRAW)
[2017-04-05 13:40] LABS: BACTERIA, URINE FEW /hpf; COMMENT (UR) CULTURE INDICATED; COMMENT2 (UR) MUCOUS PRESENT; CULTURE IF INDICATED CULTURE INDICATED
[2017-04-05] MEDS ORDERED: DIFL150T PO (13:51)
[2017-04-05] MEDS ORDERED: CIPR-9 PO (13:51)
== END 2017-04-05 14:05 | disposition home or self-care (01) ==
LOC: PHED 12:30
DX: N76.0 Acute vaginitis (principal); R30.0 Dysuria; I11.0 Hypertensive heart disease with heart failure; I50.9 Heart failure, unspecified; J44.9 Chronic obstructive pulmonary disease, unspecified; Z87.440 Personal history of urinary (tract) infections; Z95.2 Presence of prosthetic heart valve; Z98.84 Bariatric surgery status
CPT/HCPCS: 81001; 84703; 87086; 99284

== ENCOUNTER 2017-04-07 09:21 | Emergency (ER) | payer BC ==
[~2017-04-07] VITALS: Ht 162.6 cm; Wt 73.0 kg
[~2017-04-07 09:21] MED LIST changes: +CIPR-9 PO; +DIFL150T PO; -FLUT1INH INH; -PRED50 PO
[2017-04-07 09:22] VITALS: BP 211/99; PULSE 56; RESP 16; TEMP 98.2; O2SAT 99
[2017-04-07 10:08] LABS: AUTOMATED NEUTROPHIL # 6.1 TH/MM3 (1.8-7.7); BASOPHIL % 0.4 % (0.0-2.0); EOSINOPHIL # 0.1 TH/MM3 (0-0.4); EOSINOPHIL % 1.5 % (0.0-4.0); HEMATOCRIT 40.8 % (35.0-46.0); HEMO FLAGS DIFF FINAL; LYMPH % 17.1 % (9.0-44.0); LYMPHOCYTE # 1.4 TH/MM3 (1.0-4.8); MEAN CORPUSCULAR HEMOGLOBIN 30.9 PG (27.0-34.0); MEAN CORPUSCULAR HGB CONC 34.4 % (32.0-36.0); MONO % 7.6 % (0.0-8.0); NEUT % 73.4 % (16.0-70.0); PLATELET COUNT 249 TH/MM3 (150-450); RED BLOOD COUNT 4.53 MIL/MM3 (4.00-5.30); RED CELL DISTRIBUTION WIDTH 13.4 % (11.6-17.2); WHITE BLOOD COUNT 8.3 TH/MM3 (4.0-11.0)
[2017-04-07 10:15] LABS: PROTHROMBIN TIME - PATIENT 103.9 SEC (9.8-11.6)
[2017-04-07 10:20] LABS: INTERNATIONAL NORMALIZED RATIO 8.6 RATIO
[2017-04-07 10:23] LABS: BICARBONATE 27.4 MEQ/L (21.0-32.0); POTASSIUM 3.6 MEQ/L (3.5-5.1)
--- NOTE | 2017-04-07 11:49 | PD ---
HPI Chief Complaint: Abnormal Results Time Seen by Provider: 09:27 Travel History International Travel<30 days: No Contact w/Intl Traveler<30days: No Traveled to known affect area: No History of Present Illness HPI 46-year-old female came to the emergency room with history of increased INR. She was sent by her light industrial's office because INR read was high. No history of bleeding PFSH Past Medical History Narrative Medical List of her past medical, surgical, social and family history was reviewed from the nursing note. Hx Anticoagulant Therapy: Yes (COUMADIN) Autoimmune Disease: Yes (ALOPECIA) Blood Disorders: Yes Cardiovascular Problems: Yes ([facility] VALVE REPL 12/2015) Congestive Heart Failure: Yes COPD: Yes Diabetes: No Diminished Hearing: No Gastrointestinal Disorders: Yes GERD: Yes Genitourinary: No Hypertension: Yes Immune Disorder: Yes Implanted Vascular Access Dvce: Yes (MECHANICAL VALVE) Musculoskeletal: No Neurologic: No Psychiatric: No Reproductive: No Respiratory: Yes Thyroid Disease: Yes Tetanus Vaccination: < 5 Years Influenza Vaccination: No ?: Not Menopausal: Yes Para: 3 : 1 Past Surgical History Abdominal Surgery: Yes (gastric bypass surgery) Cardiac Surgery: Yes (open-heart surgery with aortic repair and valve replacement) Section: Yes Gynecologic Surgery: Yes (HYSTERECTOMY, BLADDER STENT AND SLING) Hysterectomy: Yes Valve Replacement: Yes (AORTIC VALVE REPLACEMENT MECHANICAL) Other Surgery: Yes Social History Alcohol Use: Yes (OCASSIONALLY) Tobacco Use: Yes (1 PACK PER DAY) Substance Use: Yes (MARIjUANA) Allergies-Medications (Allergen,Severity, Reaction): Coded Allergies: No Known Allergies (Unverified , 04/07/17) Comments No known drug allergies. Reported Meds & Prescriptions Reported Meds & Active Scripts Active Cipro (Ciprofloxacin HCl) 500 Mg Tab 500 Mg PO BID 5 Days Diflucan (Fluconazole) 150 Mg Tab 150 Mg PO ONCE Reported Warfarin 10 Mg Tab 15 Mg PO THURSDAY Aspirin 81 Mg Chew 81 Mg CHEW DAILY Lisinopril 5 Mg Tab 5 Mg PO DAILY Coreg (Carvedilol) 6.25 Mg Tab 6.25 Mg PO BID Synthroid (Levothyroxine Sodium) 75 Mcg Tab 75 Mcg PO DAILY Warfarin 10 Mg Tab 10 Mg PO DA Narrative Medication List of her home medications reviewed from the nursing note. Review of Systems Except as stated in HPI: all other systems reviewed are Neg Physical Exam Narrative GENERAL: Awake, alert, no obvious distress SKIN: Focused skin assessment warm/dry. HEAD: Atraumatic. Normocephalic. EYES: Pupils equal and round. No scleral icterus. No injection or drainage. ENT: No nasal bleeding or discharge. Mucous membranes pink and moist. NECK: Trachea midline. No JVD. CARDIOVASCULAR: Regular rate and rhythm. No murmur appreciated. RESPIRATORY: No accessory muscle use. Clear to auscultation. Breath sounds equal bilaterally. GASTROINTESTINAL: Abdomen soft, non-tender, nondistended. Hepatic and splenic margins not palpable. MUSCULOSKELETAL: No obvious deformities. No clubbing. No cyanosis. No edema. NEUROLOGICAL: Awake and alert. No obvious cranial nerve deficits. Motor grossly within normal limits. Normal speech. PSYCHIATRIC: Appropriate mood and affect; insight and judgment normal. Data Data Last Documented VS Orders Orders Complete Blood Count With Diff (04/07/17 09:39) Basic Metabolic Panel (Bmp) (04/07/17 09:39) Prothrombin Time / Inr (Pt) (04/07/17 09:39) Labs Laboratory Tests Test 04/07/17 09:55 White Blood Count 8.3 TH/MM3 Red Blood Count 4.53 MIL/MM3 Hemoglobin 14.0 GM/DL Hematocrit 40.8 % Mean Corpuscular Volume 90.0 FL Mean Corpuscular Hemoglobin 30.9 PG Mean Corpuscular Hemoglobin Concent 34.4 % Red Cell Distribution Width 13.4 % Platelet Count 249 TH/MM3 Mean Platelet Volume 7.9 FL Neutrophils (%) (Auto) 73.4 % Lymphocytes (%) (Auto) 17.1 % Monocytes (%) (Auto) 7.6 % Eosinophils (%) (Auto) 1.5 % Basophils (%) (Auto) 0.4 % Neutrophils # (Auto) 6.1 TH/MM3 Lymphocytes # (Auto) 1.4 TH/MM3 Monocytes # (Auto) 0.6 TH/MM3 Eosinophils # (Auto) 0.1 TH/MM3 Basophils # (Auto) 0.0 TH/MM3 CBC Comment DIFF FINAL Differential Comment Prothrombin Time 103.9 SEC Prothromb Time International Ratio 8.6 RATIO Blood Urea Nitrogen 6 MG/DL Creatinine 0.58 MG/DL Random Glucose 90 MG/DL Calcium Level 8.3 MG/DL Sodium Level 139 MEQ/L Potassium Level 3.6 MEQ/L Chloride Level 105 MEQ/L Carbon Dioxide Level 27.4 MEQ/L Anion Gap 7 MEQ/L Estimat Glomerular Filtration Rate 111 ML/MIN MDM Medical Decision Making Medical Screen Exam Complete: Yes Emergency Medical Condition: Yes Medical Record Reviewed: Yes Differential Diagnosis Supratherapeutic INR Narrative Course 11:49 AM INR is 8.6. Patient is adamant to leave the emergency room at this point. She doesn't want to wait till the discharge instructions. She wants to go to her light industrial's office to get the IV taken out. Procedures EKG Prior to Arrival: No Diagnosis Primary Impression: Supratherapeutic INR Referrals: Primary Care Physician Additional Instructions: Follow-up with your light industrial. He will manage the Coumadin Disposition: 01 DISCHARGE HOME Condition: Stable Maria Elena Palomino MD Apr 07, 2017 11:49
== END 2017-04-07 12:14 | disposition home or self-care (01) ==
LOC: NEPE 09:21
DX: D68.8 Other specified coagulation defects (principal); I10 Essential (primary) hypertension; Z95.2 Presence of prosthetic heart valve; Z79.01 Long term (current) use of anticoagulants; K21.9 Gastro-esophageal reflux disease without esophagitis
CPT/HCPCS: 80048; 85025; 85610; 99283

== ENCOUNTER 2017-04-17 04:22 | Emergency (ER) | payer BC ==
[~2017-04-17] VITALS: Ht 162.6 cm; Wt 74.8 kg
[2017-04-17 04:26] VITALS: BP 183/81; PULSE 61; RESP 16; TEMP 97.6; O2SAT 98
[2017-04-17] MEDS ORDERED: SODIUM CHLOR 0.9% 1000 ML INJ 1,000 ML IV SCH (05:03)
--- NOTE | 2017-04-17 05:12 | PD ---
HPI Chief Complaint: Skin Problem Time Seen by Provider: 04:54 Travel History International Travel<30 days: No Contact w/Intl Traveler<30days: No Traveled to known affect area: No History of Present Illness HPI The patient is a 46-year-old female that started itching yesterday on her feet, right side now itches all over except the anterior chest. She has not been on any new medications. The patient does have a history of a mechanical aortic valve. She is on Coumadin. PFSH Past Medical History Hx Anticoagulant Therapy: Yes (COUMADIN) Autoimmune Disease: Yes (ALOPECIA) Blood Disorders: Yes Cardiovascular Problems: Yes ([facility] VALVE REPL 12/2015) Congestive Heart Failure: Yes COPD: Yes Diabetes: No Diminished Hearing: No Gastrointestinal Disorders: Yes GERD: Yes Genitourinary: No Hypertension: Yes Immune Disorder: Yes Implanted Vascular Access Dvce: Yes (MECHANICAL VALVE) Musculoskeletal: No Neurologic: No Psychiatric: No Reproductive: No Respiratory: Yes Thyroid Disease: Yes Tetanus Vaccination: < 5 Years Influenza Vaccination: No ?: Not Menopausal: Yes Para: 3 : 1 Past Surgical History Abdominal Surgery: Yes (gastric bypass surgery) Cardiac Surgery: Yes (open-heart surgery with aortic repair and valve replacement) Section: Yes Gynecologic Surgery: Yes (HYSTERECTOMY, BLADDER STENT AND SLING) Hysterectomy: Yes Valve Replacement: Yes (AORTIC VALVE REPLACEMENT MECHANICAL) Other Surgery: Yes Social History Alcohol Use: Yes (OCASSIONALLY) Tobacco Use: Yes (1 PACK PER DAY) Substance Use: Yes (MARIjUANA) Allergies-Medications (Allergen,Severity, Reaction): Coded Allergies: No Known Allergies (Unverified , 04/17/17) Reported Meds & Prescriptions Reported Meds & Active Scripts Active Prednisone 50 Mg Tab 50 Mg PO BID Reported Warfarin 10 Mg Tab 15 Mg PO THURSDAY Aspirin 81 Mg Chew 81 Mg CHEW DAILY Lisinopril 5 Mg Tab 5 Mg PO DAILY Coreg (Carvedilol) 6.25 Mg Tab 6.25 Mg PO BID Synthroid (Levothyroxine Sodium) 75 Mcg Tab 75 Mcg PO DAILY Warfarin 10 Mg Tab 10 Mg PO DA Review of Systems Except as stated in HPI: all other systems reviewed are Neg Physical Exam Narrative GENERAL: Well-nourished, well-developed patient who appears quite anxious in moderate distress with her generalized itching. Her vital signs show temperature 97.6, blood pressure 183/81 but are otherwise normal. SKIN: Focused skin assessment warm/dry. There are several places where there are urticarial lesions. Behind the knees, particularly the right and on the thigh, particularly the right thigh. On the back there are linear streaks that are caused by the patient's own scratching and this is true with her wrist as well. There are also some urticarial lesions on the volar right wrist. HEAD: Normocephalic. EYES: No scleral icterus. No injection or drainage. NECK: Supple, trachea midline. No JVD or lymphadenopathy. CARDIOVASCULAR: Regular rate and rhythm without murmurs, gallops, or rubs. RESPIRATORY: Breath sounds equal bilaterally. No accessory muscle use. Lungs clear to auscultation bilaterally. GASTROINTESTINAL: Abdomen soft, non-tender, nondistended. MUSCULOSKELETAL: No cyanosis, or edema. BACK: Nontender without obvious deformity. No CVA tenderness. Data Data Last Documented VS Vital Signs Date Time Temp Pulse Resp B/P (MAP) Pulse Ox O2 Delivery O2 Flow Rate FiO2 04/17/17 05:38 96 Room Air 04/17/17 05:15 60 04/17/17 04:26 97.6 16 Orders Orders Ecg Monitoring (04/17/17 05:03) Iv Access Insert/Monitor (04/17/17 05:03) Oximetry (04/17/17 05:03) Diphenhydramine Inj (Benadryl Inj) (04/17/17 05:15) Sodium Chlor 0.9% 1000 Ml Inj (Ns 1000 M (04/17/17 05:03) Sodium Chloride 0.9% Flush (Ns Flush) (04/17/17 05:15) Epinephrine (1:1000) Inj (Adrenalin (1:1 (04/17/17 05:15) Methylprednisolone So Succ Inj (Solumedr (04/17/17 05:30) MDM Medical Decision Making Medical Screen Exam Complete: Yes Emergency Medical Condition: Yes Medical Record Reviewed: Yes Differential Diagnosis Allergic urticaria, generalized allergic reaction, neurodermatitis, anxiety reaction Narrative Course The patient has a generalized allergic reaction. I do not know what triggered this reaction. It is now 0551 and the patient feels much better and can go home. She is given a tapered course of prednisone and told to take Benadryl 25 mg 3 times daily should this reaction started up again. She should follow-up with her primary care physician. Most of the urticarial lesions have disappeared at this time, 0555. Diagnosis Primary Impression: Allergic reaction Additional Instructions: As we discussed, follow-up with your primary care physician. Take the Benadryl 25 mg 3 times daily if this reaction starts up again. The prednisone is taken one tablet twice daily for 4 days followed by one tablet once daily for 4 days. Med/Other Pt SpecificInfo: Prescription(s) given Scripts Prednisone (Prednisone) 50 Mg Tab 50 MG PO BID for X 4 days than one daily X 4 da, #12 TAB 0 Refills Prov: Anthony Santo MD 04/17/17 Disposition: 01 DISCHARGE HOME Condition: Stable Anthony Santo MD Apr 17, 2017 05:12
[2017-04-17 05:15] VITALS: PULSE 60
[2017-04-17] MEDS ORDERED: EPINEPHrine HCL (1:1000) 1 MG/ML VIAL IM ONE (05:15)
[2017-04-17] MEDS ORDERED: diphenhydrAMINE HCL 50 MG/ML VIAL IVP ONE (05:15)
[2017-04-17] MEDS ORDERED: methylPREDNISolone SOD SUCC 125 MG/2 ML VIAL IM ONE (05:15)
[2017-04-17] MEDS ORDERED: SODIUM CHLORIDE 0.9% FLUSH 10 ML FLUSH IV FLUSH PRN (05:15)
[2017-04-17] MEDS ORDERED: methylPREDNISolone SOD SUCC 125 MG/2 ML VIAL IV PUSH ONE (05:30)
[2017-04-17 05:38] VITALS: O2SAT 96
[2017-04-17] MEDS ORDERED: PRED50 PO (05:45)
[2017-04-17 05:55] VITALS: BP 185/72
== END 2017-04-17 06:03 | disposition home or self-care (01) ==
LOC: PHED 04:22
DX: T78.40XA Allergy, unspecified, initial encounter (principal); I11.0 Hypertensive heart disease with heart failure; I50.9 Heart failure, unspecified; J44.9 Chronic obstructive pulmonary disease, unspecified; K21.9 Gastro-esophageal reflux disease without esophagitis; E07.9 Disorder of thyroid, unspecified; F17.200 Nicotine dependence, unspecified, uncomplicated; Z95.2 Presence of prosthetic heart valve; Z79.01 Long term (current) use of anticoagulants
CPT/HCPCS: 96361; 96372; 96374; 96375; 99284; J0171; J1200; J2930; J7030

== ENCOUNTER 2017-04-23 13:20 | Emergency (ER) | payer BC ==
[~2017-04-23] VITALS: Ht 162.6 cm; Wt 77.8 kg
[~2017-04-23 13:20] MED LIST changes: -CIPR-9 PO; -DIFL150T PO; +PRED50 PO
[2017-04-23 13:25] VITALS: RESP 16; O2SAT 97
[2017-04-23] MEDS ORDERED: SODIUM CHLORIDE 0.9% FLUSH 10 ML FLUSH IVF PRN (14:15)
[2017-04-23] MEDS ORDERED: LORazepam 2 MG/ML VIAL IV PUSH ONE (14:15)
[2017-04-23] MEDS ORDERED: diphenhydrAMINE HCL 50 MG/ML VIAL IV PUSH ONE (14:15)
[2017-04-23 14:22] VITALS: BP 200/83; PULSE 52; RESP 20; O2SAT 97
[2017-04-23 14:25] VITALS: RESP 20; O2SAT 97
[2017-04-23 14:27] LABS: AUTOMATED NEUTROPHIL # 8.6 TH/MM3 (1.8-7.7); BASOPHIL # 0.1 TH/MM3 (0-0.2); BASOPHIL % 0.6 % (0.0-2.0); EOSINOPHIL # 0.5 TH/MM3 (0-0.4); EOSINOPHIL % 3.8 % (0.0-4.0); HEMATOCRIT 41.6 % (35.0-46.0); HEMO FLAGS DIFF FINAL; LYMPH % 24.6 % (9.0-44.0); LYMPHOCYTE # 3.3 TH/MM3 (1.0-4.8); MEAN CELL VOLUME 89.3 FL (80.0-100.0); MEAN CORPUSCULAR HEMOGLOBIN 30.5 PG (27.0-34.0); MEAN CORPUSCULAR HGB CONC 34.2 % (32.0-36.0); MONO % 7.2 % (0.0-8.0); NEUT % 63.8 % (16.0-70.0); PLATELET COUNT 320 TH/MM3 (150-450); RED BLOOD COUNT 4.66 MIL/MM3 (4.00-5.30); RED CELL DISTRIBUTION WIDTH 12.7 % (11.6-17.2); WHITE BLOOD COUNT 13.5 TH/MM3 (4.0-11.0)
--- NOTE | 2017-04-23 14:27 | PD ---
HPI Chief Complaint: Chest Pain Time Seen by Provider: 14:15 Travel History International Travel<30 days: No Contact w/Intl Traveler<30days: No Traveled to known affect area: No History of Present Illness HPI 46-year-old female patient with history of aortic dissection, COPD, mechanical valve replacement currently on Coumadin, presents to the ER today because she states that she has been having an allergic reaction for several days and was seen a few days ago in the ER and had been started on steroids and allergic reaction treatment, and over last day is getting paresthesias in her lips, hands , having some mild chest discomfort and shortness of breath, feeling very uneasy. She denies any nausea, vomiting, or any other symptoms. She states that she feels like there is a lump in her throat. Modifying Factors: None Associated Signs & Symptoms: Shortness of breath, feeling uneasy, lump in the throat, paresthesias Risk Factors: Recent steroid use PFSH Past Medical History Hx Anticoagulant Therapy: Yes (COUMADIN) Autoimmune Disease: Yes (ALOPECIA) Blood Disorders: Yes Cardiovascular Problems: Yes (HTN, MECHANICAL VALVE) Congestive Heart Failure: Yes COPD: Yes Diabetes: No Diminished Hearing: No Gastrointestinal Disorders: Yes GERD: Yes Genitourinary: No Hypertension: Yes Immune Disorder: Yes Implanted Vascular Access Dvce: Yes (MECHANICAL VALVE) Musculoskeletal: No Neurologic: No Psychiatric: No Reproductive: No Respiratory: Yes Thyroid Disease: Yes ?: Not Menopausal: Yes Para: 3 : 1 Past Surgical History Abdominal Surgery: Yes (gastric bypass surgery) Cardiac Surgery: Yes (open-heart surgery with aortic repair and valve replacement) Section: Yes Gynecologic Surgery: Yes (HYSTERECTOMY, BLADDER STENT AND SLING) Hysterectomy: Yes Valve Replacement: Yes (AORTIC VALVE REPLACEMENT MECHANICAL) Other Surgery: Yes Social History Alcohol Use: Yes (OCASSIONALLY) Tobacco Use: Yes (1 PACK PER DAY) Substance Use: Yes (MARIjUANA) Allergies-Medications (Allergen,Severity, Reaction): Coded Allergies: No Known Allergies (Unverified , 04/23/17) Reported Meds & Prescriptions Reported Meds & Active Scripts Active Prednisone 50 Mg Tab 50 Mg PO BID Reported Warfarin 10 Mg Tab 15 Mg PO THURSDAY Aspirin 81 Mg Chew 81 Mg CHEW DAILY Lisinopril 5 Mg Tab 5 Mg PO DAILY Coreg (Carvedilol) 6.25 Mg Tab 6.25 Mg PO BID Synthroid (Levothyroxine Sodium) 75 Mcg Tab 75 Mcg PO DAILY Warfarin 10 Mg Tab 10 Mg PO DA Review of Systems Except as stated in HPI: all other systems reviewed are Neg Physical Exam Narrative GENERAL: Well-developed middle age white female patient currently in mild distress, awake, alert, oriented 3, but looks very anxious. SKIN: Focused skin assessment warm/dry. HEAD: Atraumatic. Normocephalic. EYES: Pupils equal and round. No scleral icterus. No injection or drainage. ENT: No nasal bleeding or discharge. Mucous membranes pink and moist. NECK: Trachea midline. No JVD. CARDIOVASCULAR: Regular rate and rhythm. No murmur appreciated. Pulses are present and equal bilaterally. RESPIRATORY: No accessory muscle use. Clear to auscultation. Breath sounds equal bilaterally. GASTROINTESTINAL: Abdomen soft, non-tender, nondistended. Hepatic and splenic margins not palpable. MUSCULOSKELETAL: No obvious deformities. No clubbing. No cyanosis. No edema. NEUROLOGICAL: Awake and alert. No obvious cranial nerve deficits. Motor grossly within normal limits. Normal speech. PSYCHIATRIC: Anxious mood and affect; insight and judgment normal. Data Data Last Documented VS Vital Signs Date Time Temp Pulse Resp B/P (MAP) Pulse Ox O2 Delivery O2 Flow Rate FiO2 04/23/17 15:10 54 18 191/88 (122) 97 Room Air Orders Orders Complete Blood Count With Diff (04/23/17 14:15) Comprehensive Metabolic Panel (04/23/17 14:15) B-Type Natriuretic Peptide (04/23/17 14:15) Act Partial Throm Time (Ptt) (04/23/17 14:15) Prothrombin Time / Inr (Pt) (04/23/17 14:15) Ckmb (Isoenzyme) Profile (04/23/17 14:15) Troponin I (04/23/17 14:15) Iv Access Insert/Monitor (04/23/17 14:15) Electrocardiogram (04/23/17 14:15) Ecg Monitoring (04/23/17 14:15) Oximetry (04/23/17 14:15) Oxygen Administration (04/23/17 14:15) Chest, Single Ap (04/23/17 14:15) Sodium Chloride 0.9% Flush (Ns Flush) (04/23/17 14:15) Diphenhydramine Inj (Benadryl Inj) (04/23/17 14:15) Lorazepam Inj (Ativan Inj) (04/23/17 14:15) Potassium Chloride (Kcl) (04/23/17 14:45) Ed Discharge Order (04/23/17 15:11) Labs Laboratory Tests Test 04/23/17 14:15 White Blood Count 13.5 TH/MM3 Red Blood Count 4.66 MIL/MM3 Hemoglobin 14.2 GM/DL Hematocrit 41.6 % Mean Corpuscular Volume 89.3 FL Mean Corpuscular Hemoglobin 30.5 PG Mean Corpuscular Hemoglobin Concent 34.2 % Red Cell Distribution Width 12.7 % Platelet Count 320 TH/MM3 Mean Platelet Volume 8.6 FL Neutrophils (%) (Auto) 63.8 % Lymphocytes (%) (Auto) 24.6 % Monocytes (%) (Auto) 7.2 % Eosinophils (%) (Auto) 3.8 % Basophils (%) (Auto) 0.6 % Neutrophils # (Auto) 8.6 TH/MM3 Lymphocytes # (Auto) 3.3 TH/MM3 Monocytes # (Auto) 1.0 TH/MM3 Eosinophils # (Auto) 0.5 TH/MM3 Basophils # (Auto) 0.1 TH/MM3 CBC Comment DIFF FINAL Differential Comment Prothrombin Time 101.3 SEC Prothromb Time International Ratio 8.4 RATIO Activated Partial Thromboplast Time 51.3 SEC Blood Urea Nitrogen 15 MG/DL Creatinine 0.54 MG/DL Random Glucose 73 MG/DL Total Protein 6.3 GM/DL Albumin 3.4 GM/DL Calcium Level 7.8 MG/DL Alkaline Phosphatase 73 U/L Aspartate Amino Transf (AST/SGOT) 14 U/L Alanine Aminotransferase (ALT/SGPT) 21 U/L Total Bilirubin 0.4 MG/DL Sodium Level 139 MEQ/L Potassium Level 3.2 MEQ/L Chloride Level 104 MEQ/L Carbon Dioxide Level 27.0 MEQ/L Anion Gap 8 MEQ/L Estimat Glomerular Filtration Rate 121 ML/MIN Total Creatine Kinase 39 U/L Troponin I 0.02 NG/ML B-Type Natriuretic Peptide 168 PG/ML [facility] Medical Decision Making Medical Screen Exam Complete: Yes Emergency Medical Condition: Yes Medical Record Reviewed: Yes Interpretation(s) EKG shows NSR, no ST elevation or depression, and no arrhythmias. No significant T-wave inversions. Laboratory Tests Test 04/23/17 14:15 White Blood Count 13.5 TH/MM3 (4.0-11.0) Neutrophils # (Auto) 8.6 TH/MM3 (1.8-7.7) Monocytes # (Auto) 1.0 TH/MM3 (0-0.9) Eosinophils # (Auto) 0.5 TH/MM3 (0-0.4) Prothrombin Time 101.3 SEC (9.8-11.6) Prothromb Time International Ratio 8.4 RATIO Activated Partial Thromboplast Time 51.3 SEC (24.3-30.1) Random Glucose 73 MG/DL (74-106) Total Protein 6.3 GM/DL (6.4-8.2) Calcium Level 7.8 MG/DL (8.5-10.1) Aspartate Amino Transf (AST/SGOT) 14 U/L (15-37) Potassium Level 3.2 MEQ/L (3.5-5.1) B-Type Natriuretic Peptide 168 PG/ML (0-100) Last 24 hours Impressions Chest X-Ray 04/23/17 1415 Signed Impressions: Service Date/Time: , April 23, 2017 14:32 - CONCLUSION: No acute disease. Shree Stanley MD Differential Diagnosis Shortness of breath, anxiety, paresthesias in the lips and hands: Anxiety attack versus dysrhythmias versus steroid side effects versus metabolic issues versus ACS Narrative Course Patient appears overtly anxious, and was given Ativan and Benadryl in the ER. Lab work shows hypokalemia potassium was given. EKG did not show significant dysrhythmias. Her symptoms are indicative of underlying anxiety, possibly related to recent use of steroids medications for the allergic reaction. At this point, it appears that her allergic reaction is improving. I think that it may be safer to take her off the steroids for now because of the side effects and to keep her on Benadryl. My plan would be to release her with close follow-up to primary care physician. Return for any worsening in symptoms. The plan was discussed with her and she states understanding. In addition, her INR is found to be elevated, patient states that she was told by her primary care doctor this morning already and they have a plan. Diagnosis Primary Impression: Anxiety attack Additional Impression: Supratherapeutic INR Med/Other Pt SpecificInfo: Prescription(s) given, Med Stopped (prednisone) Scripts Lorazepam (Ativan) 0.5 Mg Tab 0.5 MG PO Q8H Y for ANXIETY AND/OR AGITATION, #5 TAB 0 Refills Prov: Jose Alberto Monreal MD 04/23/17 Disposition: 01 DISCHARGE HOME Condition: Stable Jose Alberto Monreal MD Apr 23, 2017 14:27
[2017-04-23 14:36] LABS: CHLORIDE 104 MEQ/L (98-107); POTASSIUM 3.2 MEQ/L (3.5-5.1); SODIUM (NA) 139 MEQ/L (136-145)
[2017-04-23 14:40] LABS: ANION GAP 8 MEQ/L (5-15); BLOOD UREA NITROGEN 15 MG/DL (7-18)
[2017-04-23 14:42] LABS: APTT (PATIENT) 51.3 SEC (24.3-30.1); PROTHROMBIN TIME - PATIENT 101.3 SEC (9.8-11.6)
[2017-04-23 14:43] LABS: ALT (GPT) 21 U/L (10-53); AST (GOT) 14 U/L (15-37); GLOMERULAR FILTRATION RATE 121 ML/MIN (>89)
[2017-04-23 14:44] LABS: TOTAL BILIRUBIN ADULT 0.4 MG/DL (0.2-1.0)
[2017-04-23 14:45] LABS: ALKALINE PHOSPHATASE 73 U/L (45-117)
[2017-04-23] MEDS ORDERED: POTASSIUM CHLORIDE 10 MEQ CONTROLLED RELEASE TAB PO ONE (14:45)
[2017-04-23 14:48] LABS: CREATINE KINASE 39 U/L (26-192); INTERNATIONAL NORMALIZED RATIO 8.4 RATIO
--- NOTE | 2017-04-23 14:50 | RADRPT ---
EXAM DATE/TIME: 04/23/2017 14:32 [facility] COMPARISON: CHEST SINGLE AP, January 31, 2017, 23:02. INDICATIONS : Short of breath and dizziness. MEDICAL HISTORY : Congestive heart failure. Cardiovascular disease Chronic obstructive pulmonary disease. SURGICAL HISTORY : Hysterectomy. Gastric bypass. [employer] Interstim bladder implant device. Bladder stent with sling. ENCOUNTER: Initial ACUITY: 2 days PAIN SCORE: 2/10 LOCATION: Left chest FINDINGS: A single view of the chest demonstrates the lungs to be symmetrically aerated without evidence of mas s, infiltrate or effusion. Median sternotomy wires from prior surgery are noted. The cardiomediastina l contours are unremarkable. Osseous structures are intact. CONCLUSION: No acute disease. Shree Stanley MD on April 23, 2017 at 14:49 Board Certified Radiologist. This report was verified electronically.
[2017-04-23 15:10] VITALS: BP 191/88; PULSE 54; RESP 18; O2SAT 97
[2017-04-23] MEDS ORDERED: LORA-392 PO (15:17)
--- NOTE | 2017-04-23 18:49 | EKG ---
Date Performed: 04/23/2017 Time Performed: 13:33:52 PTAGE: 46 years EKG: SINUS BRADYCARDIA BORDERLINE ECG PREVIOUS TRACING : 01/31/2017 22.42 No significant change from previous tracing noted. DOCTOR: Harvey Rios Interpretating Date/Time 04/23/2017 18:48:40
== END 2017-04-23 15:32 | disposition home or self-care (01) ==
LOC: PHED 13:20
DX: F41.8 Other specified anxiety disorders (principal); R79.1 Abnormal coagulation profile; E87.6 Hypokalemia; R07.89 Other chest pain; R06.02 Shortness of breath; R94.31 Abnormal electrocardiogram [ECG] [EKG]; I10 Essential (primary) hypertension; E07.9 Disorder of thyroid, unspecified; F17.200 Nicotine dependence, unspecified, uncomplicated; Z79.01 Long term (current) use of anticoagulants; Z86.2 Personal history of diseases of the blood and blood-forming organs and certain disorders involving the immune mechanism; Z86.79 Personal history of other diseases of the circulatory system; Z87.09 Personal history of other diseases of the respiratory system; Z87.19 Personal history of other diseases of the digestive system
CPT/HCPCS: 71010; 80053; 82550; 83880; 84484; 85025; 85610; 85730; 93005; 96374; 96375; 99285; J1200; J2060

== ENCOUNTER 2017-07-25 17:23 | Emergency (ER) | payer BC, OTHER ==
[~2017-07-25] VITALS: Ht 162.6 cm; Wt 75.0 kg
[~2017-07-25 17:23] MED LIST changes: +ASPI-516 CHEW; -ASPI81CH CHEW; +LORA-392 PO
[2017-07-25 17:27] VITALS: BP 206/82; PULSE 67; RESP 16; TEMP 97.5; O2SAT 100
[2017-07-25 18:45] LABS: BILIRUBIN, URINE NEG (NEG); BLOOD, URINE TRACE (NEG); GLUCOSE,URINE NEG (NEG); HYALINE CAST, URINE 1 /lpf (RARE); KETONE, URINE NEG (NEG); NITRITE,URINE NEG (NEG); SQUAMOUS EPITHELIAL CELL URINE 2 /hpf (0-5); URINE COLOR DARK-YELLOW (YELLW/STRAW); URINE LEUKOCYTE ESTERASE NEG (NEG)
[2017-07-25] MEDS ORDERED: DIFL150T PO (18:58)
--- NOTE | 2017-07-25 18:58 | PD ---
HPI Chief Complaint: Complaint Time Seen by Provider: 17:44 Travel History International Travel<30 days: No Contact w/Intl Traveler<30days: No Traveled to known affect area: No History of Present Illness HPI Patient is a 46-year-old female who comes in complaining of burning on urination seen mucus in her urine. She says this has been going on for the past week. She saw her doctor who prescribed Bactrim. When this did not work, she went to an urgent care that prescribed Macrobid. She says she is still having the symptoms. She denies fever or chills. She denies nausea or vomiting. She denies abdominal pain. She says she has been having issues with frequent urinary tract infections. She also has history of yeast infections. She says she has noticed some mild discharge, but has no vaginal odor. She is sexually active, but reports using condoms. She says nothing she has done has relieved any of her symptoms. PFSH Past Medical History Hx Anticoagulant Therapy: Yes (WARFARIN) Autoimmune Disease: Yes (ALOPECIA) Blood Disorders: Yes Cardiovascular Problems: Yes (HTN, MECHANICAL VALVE) Congestive Heart Failure: Yes COPD: Yes Diabetes: No Diminished Hearing: No Gastrointestinal Disorders: Yes GERD: Yes Genitourinary: No Hypertension: Yes Immune Disorder: Yes Implanted Vascular Access Dvce: Yes (MECHANICAL VALVE) Musculoskeletal: No Neurologic: No Psychiatric: No Reproductive: No Respiratory: Yes Thyroid Disease: Yes ?: Not Menopausal: Yes Para: 3 : 1 Past Surgical History Abdominal Surgery: Yes (gastric bypass surgery) Cardiac Surgery: Yes (open-heart surgery with aortic repair and valve replacement) Section: Yes Gynecologic Surgery: Yes (HYSTERECTOMY, BLADDER STENT AND SLING) Hysterectomy: Yes (PARTIAL) Valve Replacement: Yes (AORTIC VALVE REPLACEMENT MECHANICAL) Other Surgery: Yes Social History Alcohol Use: Yes (OCASSIONALLY) Tobacco Use: Yes (1 PACK PER DAY) Substance Use: Yes (MARIjUANA) Allergies-Medications (Allergen,Severity, Reaction): Coded Allergies: No Known Allergies (Unverified Adverse Reaction, Unknown, 07/25/17) Reported Meds & Prescriptions Reported Meds & Active Scripts Active Reported Warfarin 10 Mg Tab 15 Mg PO THURSDAY Aspirin 81 Mg Chew 81 Mg CHEW DAILY Lisinopril 5 Mg Tab 5 Mg PO BID Coreg (Carvedilol) 6.25 Mg Tab 6.25 Mg PO BID Synthroid (Levothyroxine Sodium) 75 Mcg Tab 75 Mcg PO DAILY Warfarin 10 Mg Tab 10 Mg PO DA Review of Systems Except as stated in HPI: all other systems reviewed are Neg General / Constitutional: No: Fever, Chills HENT: No: Headaches, Vertigo, Lightheadedness Cardiovascular: No: Chest Pain or Discomfort Respiratory: No: Shortness of Breath Gastrointestinal: No: Nausea, Vomiting, Abdominal Pain Genitourinary: Positive: Dysuria, No: Flank Pain Skin: No Rash, No Change in Pigmentation Neurologic: No: Weakness, Dizziness Physical Exam Narrative GENERAL: Awake and alert, in no acute distress. SKIN: Focused skin assessment warm/dry. HEAD: Atraumatic. Normocephalic. EYES: Pupils equal and round. No scleral icterus. ENT: Mucous membranes pink and moist. NECK: Trachea midline. No JVD. CARDIOVASCULAR: Regular rate and rhythm. No murmur appreciated. RESPIRATORY: No accessory muscle use. Clear to auscultation. Breath sounds equal bilaterally. GASTROINTESTINAL: Abdomen soft, non-tender, nondistended. No CVA tenderness. : Exam performed in the presence of a female nurse. Irritation to the anterior aspect of the right labia. Thin white discharge. No CMT. MUSCULOSKELETAL: No obvious deformities. No clubbing. No cyanosis. No edema. NEUROLOGICAL: Awake and alert. No obvious cranial nerve deficits. Motor grossly within normal limits. Normal speech. PSYCHIATRIC: Appropriate mood and affect; insight and judgment normal. Data Data Last Documented VS Vital Signs Date Time Temp Pulse Resp B/P (MAP) Pulse Ox O2 Delivery O2 Flow Rate FiO2 07/25/17 17:27 97.5 67 16 206/82 (123) 100 Room Air Orders Orders Urinalysis - C+S If Indicated (07/25/17 17:34) Gc And Chlamydia Pcr (07/25/17 17:54) Wet Prep Profile (07/25/17 17:54) Labs Laboratory Tests Test 07/25/17 18:18 Urine Color DARK-YELLOW Urine Turbidity CLEAR Urine pH 6.0 Urine Specific Mertens 1.017 Urine Protein NEG mg/dL Urine Glucose (UA) NEG mg/dL Urine Ketones NEG mg/dL Urine Occult Blood TRACE Urine Nitrite NEG Urine Bilirubin NEG Urine Urobilinogen LESS THAN 2.0 MG/DL Urine Leukocyte Esterase NEG Urine RBC 2 /hpf Urine WBC 1 /hpf Urine Squamous Epithelial Cells 2 /hpf Urine Hyaline Casts 1 /lpf Microscopic Urinalysis Comment CULT NOT INDICATED Clue Cells (Wet Prep) NONE SEEN Vaginal Trichomonas (Wet Prep) NONE SEEN Vaginal Yeast (Wet Prep) NONE SEEN MDM Medical Decision Making Medical Screen Exam Complete: Yes Emergency Medical Condition: Yes Differential Diagnosis UTI vs yeast infection vs BV vs gc/chlamydia Narrative Course Patient is a 46 year old female who comes in complaining of vaginal irritation and burning on urination. Exam does show irritation to the labia, thin white discharge. Urinalysis is negative for UTI. Patient says that she was told by the urgent care that her urine culture did not grow anything. Patient be discharged with prescription for Diflucan. She is advised follow-up with urology and gynecology. Advised to return to the ED as needed for any worsening symptoms. Diagnosis Primary Impression: Yeast infection Patient Instructions: General Instructions, Vulvovaginal Candidiasis (ED) Additional Instructions: Follow-up with gynecology and urology. Drink plenty of water. Return to the ED as needed for any worsening symptoms. Scripts Fluconazole (Diflucan) 150 Mg Tab 150 MG PO ONCE for Infection, #1 TAB 0 Refills Prov: Emily Diaz MD 07/25/17 Disposition: 01 DISCHARGE HOME Condition: Stable Emily Diaz MD Jul 25, 2017 18:58
== END 2017-07-25 19:30 | disposition home or self-care (01) ==
LOC: NEPC 17:23
DX: B37.9 Candidiasis, unspecified (principal); L65.9 Nonscarring hair loss, unspecified; I11.0 Hypertensive heart disease with heart failure; I50.9 Heart failure, unspecified; J44.9 Chronic obstructive pulmonary disease, unspecified; K21.9 Gastro-esophageal reflux disease without esophagitis; E07.9 Disorder of thyroid, unspecified; F17.200 Nicotine dependence, unspecified, uncomplicated; Z79.01 Long term (current) use of anticoagulants
CPT/HCPCS: 81001; 87210; 87491; 87591; 99283